=== PATIENT | female | born 1965 | race Caucasian/White ===

== ENCOUNTER 2024-08-13 19:23 | Emergency (ER) | payer BC, SELFPAY ==
[2024-08-13 19:25] VITALS: BP 160/101
[2024-08-13 19:49] LABS: % Basophils 0.7 % (0-2); % Immature Granulocytes 0.2 % (0-0.5); % Lymphocytes 30.3 % (20.5-51.1); % Monocytes 6.5 % (1.7-9.3); % Neutrophils 60.3 % (42.2-75.2); Absolute Eosinophils 0.1 10^3/uL (0-0.7); Absolute Lymphocytes 1.8 10^3/uL (1.2-3.4); Absolute Monocytes 0.4 10^3/uL (0.1-0.6); Absolute Neutrophils 3.6 10^3/uL (1.4-6.5); Hematocrit 40.6 % (37.0-47.0); Hemoglobin 13.8 g/dL (12.0-16.0); Mean Corpuscular Hgb 31.5 pg (27.0-31.0); Mean Corpuscular Volume 92.7 fL (81.0-99.0); Mean Platelet Volume 9.3 fL (7.4-10.4); Nucleated Red Blood Cells % 0 %; Platelet Count 190 10^3/uL (130-400); Red Blood Cell Count 4.38 10^6/uL (4.20-5.40); Red Cell Dist. Width 12.7 % (11.5-14.5); White Blood Cell Count 5.9 10^3/uL (4.8-10.8)
[2024-08-13 20:06] LABS: ALT (SGPT) 19 U/L (0-35); AST (SGOT) 25 U/L (14-36); Albumin 4.9 g/dl (3.5-5.0); Alkaline Phosphatase 91 U/L (38-126); Blood Urea Nitrogen 11 mg/dl (7-17); Calcium 9.9 mg/dl (8.4-10.2); Carbon Dioxide 30 mmol/L (22-30); Chloride 100 mmol/L (98-107); Glucose 114 mg/dl (70-99); Potassium 4.3 mmol/L (3.5-5.1); Sodium 138 mmol/L (135-145); Total Protein 7.9 g/dl (6.3-8.2); eGFR > 60.00
[2024-08-13 20:12] LABS: NT-proBNP 44.3 pg/ml; Troponin I < 0.012 ng/ml
[2024-08-13 20:25] VITALS: BP 156/92
--- NOTE | 2024-08-13 20:28 | ED.GENMED ---
History of Present Illness
General
Chief Complaint: Cardiac Symptoms
Source: patient
Exam Limitations: none
Time Seen by Provider: 08/13/24 20:21
Nursing documentation reviewed up to this point in time: agreed with
History of Present Illness
History of Present Illness:
Patient is a 59-year-old female with history of hypertension hypercholesterolemia presents to the ER for evaluation of left-sided chest pain and arm pain. She reports she started to feel achiness and some left shoulder left chest tightness around
3:30 PM. She denies any associated shortness of breath she did take 600 mg of Motrin however pain gradually increased around 5:30 PM. She had nausea with this which is what concerned her. She has had neck issues in the past and bicep tendon
labral repair and has had shoulder issues but reports this feels different. She has no cardiac history. Her half stepsister at 44 from an [place] but she also had lupus. Because of that she had a stress test which was normal 11 years ago.
She does reports she was helping her move her bed this morning but denies any actual injury during that. She has had the chills with denies any actual cough/URI s/s. She denies any swelling to left arm, denies neck pain.
Review of Systems
Review of Systems
Allergies reviewed?: Yes
All Other Systems: ROS reviewed and negative except as documented in HPI and ROS
Constitutional: Reports no symptoms; Denies fever, fatigue or chills
Respiratory: Reports no symptoms
Cardiac: Reports chest pain
ABD/GI: Reports no symptoms
Musculoskeletal: Reports other (left arm pain )
Skin: Reports no symptoms
Neurological: Reports no symptoms
Psychiatric: Reports no symptoms
Phy Exam
General Physical Exam
General Presentation: no apparent distress
General age: appears stated age
General Skin: warm and dry
General Habitus: normal
General Mental: alert
General Hydration: appears well hydrated
Cardiovascular Exam
Cardiovascular Exam: regular rate/rhythm, no murmur and normal peripheral pulses
Pulmonary Exam
Pulmonary Exam: lungs clear and no respiratory distress
Neurological Exam
Neurological Exam: alert and oriented x3
Musculoskeletal Exam
Musculoskeletal Exam: full ROM
Skin Exam
Skin Exam: normal color and warm/dry
Psychiatric Exam
Psychiatric Exam: normal mood/affect
Course
Orders/Labs/Results
Orders:
Orders
08/13/24 19:23
ECG [Electrocardiogram (*1)] Urgent
Reason for Study: Chest Pain
EKG- Treatment ONCE
08/13/24 19:39
Cardiac Monitoring- Treatment ONCE
CR Chest - 2 Views Urgent
Comment:
Reason For Exam: respiratory distress
O2 Therapy [RESP] Urgent
Titrate/Wean O2 to maintain O2 sat greater than (%): 93
Special Instructions: TO MAINTAIN CONTINUOUS O2 SATS >/= 93%
Pulse Ox/cont/shift [RESP] Urgent
Quantity: 1
Special Instructions: continuous pulse ox
08/13/24 19:43
Complete Blood Count/With Diff Urgent
Comprehensive Metabolic Panel Urgent
NT-proBNP Urgent
Troponin I Urgent
08/13/24 21:13
Ondansetron Orally Disint [Zofran Odt (Orally Disintegrating)] 4 mg PO NOW STA
08/13/24 22:40
Electrocardiogram (*1) Stat
Reason for Study: Chest Pain
EKG- Treatment ONCE
08/13/24 22:59
Troponin I Urgent
Abnormal Lab Results
08/13/24
19:43
MCH 31.5 H pg
(27.0-31.0)
Glucose 114 H mg/dl
(70-99)
08/13/24 19:43
08/13/24 19:43
Vital Signs
Initial and Last Documented VS:
Initial Vital Signs
Temp Pulse Resp BP Pulse Ox
99.1 F 76 20 160/101 100
08/13/24 19:25 08/13/24 19:25 08/13/24 19:25 08/13/24 19:25 08/13/24 19:25
Last Documented Vital Signs
Temp Pulse Resp BP Pulse Ox
99.1 F 82 20 125/68 98
08/13/24 19:25 08/13/24 23:00 08/13/24 23:00 08/13/24 23:00 08/13/24 21:00
Software Quality Engineer consulted with Physician
Software Quality Engineer consulted with physician?: Yes
Name of Physician Consulted: [email or web address]
MDM/Problems Addressed
MDM/Problems Addressed:
As documented patient is a 59-year-old female who presented with arm pain small chest discomfort. She had this since earlier this afternoon. She does report she was moving a bed though denies any Xact injury at that time. She presents awake alert
no acute distress.
Patient had 2 negative cardiac troponins here no acute findings on EKG. no acute findings on chest xray. pt is symptom free here in the ER. no neck/back pain, no sob.
She does report that her family doctor is to a research development manager and she wishes to see that cardiology group. Discussed close outpatient follow with cardiology group. And to return if any worsening of symptoms
*Critical Care Note
Total Time (30-74mins, 75-104mins- exclusive of procedures): Not Applicable
ED Attending Note
-
Portions of this chart may have been created with voice recognition software.� Occasional wrong word or��sound alike� substitutions may have occurred due to the inherent limitations of voice recognition software.
Discharge Plan
Departure
Patient Disposition: Home (Routine Discharge)
Date of Disposition: 08/13/24
Time of Disposition: 23:47
Patient with high blood pressure during this ER visit?: Yes
Condition: Fair
Covid-19: Not Applicable
Discharge Problem:
Chest pain
Instructions: Chest Pain (DC), Chest Pain NON-DHP Picture Hanger Follow Up, BLOOD PRESSURE
Prescriptions:
No Action
cetirizine [Zyrtec] 10 mg Tablet
10 mg PO QPM
levothyroxine 88 mcg Tablet
88 mcg PO DAILY
montelukast [Singulair] 10 mg Tablet
10 mg PO QPM
olmesartan 20 mg Tablet
20 mg PO QPM
rosuvastatin [Crestor] 20 mg Tablet
20 mg PO QPM
Referrals:
Valarie Yanez MD [Family Provider] -
Activity Restrictions/Additional Instructions:
As discussed please follow-up with cardiology. Return if any worsening of symptoms
Interventions
Interventions:
*Risk Screen - Suicide Last Done: 08/13/24 19:25
*General Assessment Last Done: 08/13/24 19:25
*Neglect/Abuse Screening Last Done: 08/13/24 19:25
ED- Fall Risk Assessment Last Done: 08/13/24 19:25
*ED COVID-19 Vaccine History Last Done: 08/13/24 19:25
ED- Pulmonary Assessment Last Done: 08/13/24 20:35
ED- Cardiac Assessment Last Done: 08/13/24 20:35
Discharge Date and Time
Print Language: TAMAZIGHT
[2024-08-13 20:35] VITALS: BMI 37.9
--- NOTE | 2024-08-13 20:37 | EDRN ---
Pt says in the afternoon, her L bicep and tricep felt tight and she had nausea. Pt has had chills 'I didn't feel right.' Pt took couple Tums and says she was hungry but did not eat dinner because she had nausea. Pt says her daughter took her BP
and it was 180/110 which prompted ED visit. Pt did help move furniture this morning but denies lifting anything heavy and says she was fine while doing it. Tightness in upper L arm started 4-5 hours after this. 'I feel like somebody has a bp cuff
on my left arm, squeezing the muscle.' Pt adds she felt 'a little' cp while in the waiting room but it is gone now. Pt denies sob, abd pain, vomiting, diarrhea/constipation, urinary symptoms, diaphoresis, fever/cough.
[2024-08-13 21:00] VITALS: BP 143/82
[2024-08-13] MEDS: ZOFRAN ODT (ORALLY DISINTEGRATING) 4 MG PO (21:15)
[2024-08-13 22:00] VITALS: BP 110/71
[2024-08-13 23:00] VITALS: BP 125/68
[2024-08-13 23:33] LABS: Troponin I < 0.012 ng/ml
== END 2024-08-13 23:59 | disposition home or self-care (01) ==
LOC: EMR 19:23
PROVIDERS: Nurse Practitioner; Student in an Organized Health Care Education/Training Program; EMERGENCY PHYSICIAN Student in an Organized Health Care Education/Training Program; FAMILY PHYSICIAN Internal Medicine
DX: R07.89 Other chest pain (principal); M25.512 Pain in left shoulder; R11.0 Nausea; M79.602 Pain in left arm; R68.83 Chills (without fever); I10 Essential (primary) hypertension; E78.00 Pure hypercholesterolemia, unspecified; M19.90 Unspecified osteoarthritis, unspecified site; J45.909 Unspecified asthma, uncomplicated
CPT/HCPCS: 99285; 94760; 71046; 80053; 83880; 84484; 85025; 93005